=== PATIENT | male | born 1965 | race Caucasian/White ===

== ENCOUNTER → 2016-06-20 | Outpatient (CLI) | payer MEDICARE, MEDICAID ==
[~2016-06-20] MED LIST: CELEXA20 MG PO; FISH OIL 1,0001 EAC1 PO; GLUCOTROL XL5 MG PO; LASIX20 MG PO; LIPITOR10 MG PO; NEURONTIN600 MG PO; PRINIVIL20 MG PO; TESTOSTERO100 MG/1 M IM; TRADJENTA5 MG PO
== END | disposition short-term general hospital (02) ==
LOC: CLNEPH 10:54
DX: N18.4 Chronic kidney disease, stage 4 (severe) (principal); E13.21 Other specified diabetes mellitus with diabetic nephropathy; E11.40 Type 2 diabetes mellitus with diabetic neuropathy, unspecified